=== PATIENT | female | born 1950 | race Caucasian/White ===

== ENCOUNTER 2024-12-31 09:30 | Outpatient (REF) | payer MEDICARE, SELFPAY ==
[2024-12-31 14:22] LABS: MANUAL DIFF FLAG NO
[2024-12-31 14:30] LABS: Hematocrit 38.0 % (37.0-47.0); Hemoglobin 12.9 g/dl (12.0-16.0); Imm Gran Abs Auto 0.01 X10*3/uL (0.00-0.03); Imm Gran Pct Auto 0.2 % (0.0-0.4); Lymphocytes Absolute Auto 1.8 X10*3/uL (1.2-4.9); Mean Corpuscular HGB Conc 33.9 g/dl (31.0-35.0); Mean Corpuscular Hemoglobin 28.9 pg (27.0-33.0); Mean Corpuscular Volume 85.2 fL (80.0-98.0); NRBC Abs Auto 0.000 X10*3/uL (0.0-0.012); NRBC Pct Auto 0.0 /100WBC (0.0-0.2); Platelet Count 267 X10*3/uL (160-400); Red Blood Count 4.46 X10*6/uL (4.20-5.50); White Blood Count 6.7 X10*3/uL (4.8-10.8)
[2024-12-31 15:05] LABS: Alanine Aminotransferase 15 U/L (0-31); Albumin Level 4.4 g/dL (3.5-5.0); Alkaline Phosphatase 71 U/L (39-117); Anion Gap 10 (12-20); Aspartate Amino Transferase 29 U/L (5-31); Blood Urea Nitrogen 15 mg/dL (9-16); Calcium 9.2 mg/dL (8.4-10.2); Carbon Dioxide 28 mmol/L (22-29); Chloride 109 mmol/L (96-108); Cholesterol 213 mg/dL (<200); Estimated Glomerular Filt Rate 55; HDL Cholesterol 59 mg/dL (>40); Potassium 3.8 mmol/L (3.3-5.1); Sodium 143 mmol/L (135-145); Total Protein 6.9 g/dL (6.5-8.0); Triglycerides 111 mg/dL (<150)
[2024-12-31 15:30] LABS: Hemoglobin A1C 138.8230 umol/L
== END 2024-12-31 09:31 | disposition home or self-care (01) ==
LOC: HO.WFDLDS 09:30
PROVIDERS: PCP Internal Medicine; Visit Provider Internal Medicine
DX: Z13.228 Encounter for screening for other metabolic disorders (principal); Z13.0 Encounter for screening for diseases of the blood and blood-forming organs and certain disorders involving the immune mechanism; E28.39 Other primary ovarian failure; E78.5 Hyperlipidemia, unspecified; R92.8 Other abnormal and inconclusive findings on diagnostic imaging of breast; G43.909 Migraine, unspecified, not intractable, without status migrainosus
CPT/HCPCS: 36415; 80053; 80061; 83036; 84443; 85025; 96127; 99202

== ENCOUNTER 2024-12-31 09:30 | Outpatient (AMB) | payer MEDICARE, SELFPAY ==
--- NOTE | 2024-12-31 09:35 | A.OFFPC_ITS ---
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: No Allergies No Known Allergies Allergy (Verified 12/31/24 09:39) Tobacco use date assessed: 12/31/24 Fall risk assessment: No Falls in past year Last assessed Fall Risk: 12/31/24 Dental Screening Dental Screen Date: 12/31/24 Did you have a dental visit in the last 12 months?: Yes Did you have a dental problem in the last 6 months where you did not have access to dental care?: No Was dental information given to patient?: Patient has dentist HPI HPI Comments History of Present Illness Details 74 year old female with a past medical h istory of migraines, hyperlipidemia, low vitamin D presenting to establish care HLD-on simvastatin Migraines-stable on imitrex Mammogram 08/2024-needs follow up imaging Td 2017 ROS CONSTITUTIONAL: Denies weight loss, fever and chills. HEENT: Denies changes in vision and hearing. RESPIRATORY: Denies SOB and cough. CV: Denies palpitations and CP GI: Denies abdominal pain, nausea, vomiting and diarrhea. : Denies dysuria and urinary frequency. MSK: Denies new myalgia and joint pain. SKIN: Denies rash and pruritus. NEUROLOGICAL: Denies headache PSYCHIATRIC: Denies recent changes in mood. PHYSICAL EXAM: GENERAL: Alert and oriented x 3. NAD EYES: EOMI. Anicteric. HENT: Moist mucous membranes. No scleral icterus. No cervical lymphadenopathy. LUNGS: Clear to auscultation bilaterally. CARDIOVASCULAR: Regular rate and rhythm. No murmur. No JVD. ABDOMEN: Soft, non-tender +bs EXTREMITIES: No edema. Non-tender. SKIN: No rashes or lesions. Warm. NEUROLOGIC: No focal neurological deficits. CN II-XII grossly intact PSYCHIATRIC: Cooperative. Appropriate mood and affect FOR[facility]LY [facility], [facility] Surgical History (Updated 12/31/24 @ 09:51 by Lucy Blanco CMA) History of colonoscopy H/O wisdom tooth extraction Hx of tonsillectomy Family History (Updated 12/31/24 @ 09:52 by Lucy Blanco CMA) Father Dementia HTN (hypertension) Cirrhosis Mother Uterine cancer Other Alcoholism FH: mental illness Substance abuse Social History (Updated 12/31/24 @ 09:53 by Lucy Blanco CMA) Housing: House Alcohol intake: current Patient Tobacco Use Status: Former Tobacco user Cigarette Packs Per Day: 0.25 Years Smoked: 2 e-Cigarette/Vaping Use: Never Used Second Hand Smoke Exposure: Yes service: No Current occupational status: retired Cognitive needs: No Hearing needs: Yes (hearing aid left ear) Vision needs: Yes (glasses) Questionnaire PHQ-9 Over the last 2 weeks, how often have you been bothered by any of the following problems? 1. Little interest or pleasure in doing things: not at all 2. Feeling down, depressed, or hopeless: not at all 3. Trouble falling or staying asleep, or sleeping too much: several days 4. Feeling tired or having little energy: several days 5. Poor appetite or overeating: not at all 6. Feeling bad about yourself - or that you are a failure or have let yourself or your family down: not at all 7. Trouble concentrating on things, such as reading the newspaper or watching television: not at all 8. Moving or speaking so slowly that other people could have noticed. Or the opposite - being so fidgety or restless that you have been moving around a lot more than usual: not at all 9. Thoughts that you would be better off or of hurting yourself in some way: not at all Total score: 2 Depression Screening Interpretation: Negative Depression Screening Done: Yes 48572 - PHQ-9 Billing: Yes Source: Developed by Drs. Terrance Almaraz, Kathy Bell, Bautista Durant and colleagues, with an educational kimber from [employer]. Thrive Questionnaire Date Thrive assessed: 12/31/24 I am a: Patient What is your living situation today?: I have a steady place to live Within the past 12 months, did the food you bought not last and you didn't have the money to get more?: Never true Within the past 12 months, did you worry whether your food would run out before you got money to buy more?: Never true Do you have trouble paying for medicines?: No Do you have trouble getting transportation to medical appointments?: No Do you have trouble paying your heating and electricity bill?: No Do you have trouble taking care of your child, family member or friend?: No Do you have trouble with day-to-day activities such as bathing, preparing meals, shopping, managing finances, etc.?: No Are you currently unemployed and looking for a job?: No Are you interested in more education?: No Please select the resources that you would like help with: None Currently or been in a relationship where the following occur: No concerns reported THRIVE Score: 0 AUDIT C Alcohol Use Questionnaire (AUDIT-C) 1. How often do you have a drink containing alcohol?: Monthly or less 2. How many drinks containing alcohol do you have on a typical day when you are drinking?: 1 or 2 3. How often do you have six or more drinks on one occasion?: Never Total Score: 1 YANA-7 AMB Questionnaire YANA-7 Date YANA - 7 assessed: 12/31/24 Feeling nervous, anxious, or on edge: 0 = Not at all Not being able to stop or control worryin = Not at all Worrying too much about different things: 0 = Not at all Trouble relaxin = Several days Being so restless that it is hard to sit still: 0 = Not at all Becoming easily annoyed or irritable: 1 = Several days Feeling afraid as if something awful might happen: 0 = Not at all Total YANA-7 score (0-4 normal; 5-9 mild; 10-14 moderate; 15-21 severe): 2 Source: Developed by Drs. Terrance Almaraz, Kathy Bell, Bautista Durant and colleagues, with an educational kimber from [employer]. YANA-7 Assessment Billing YANA-7 Assessment Tool: YANA-7 Assessment 42599 Physical exam (Primary Care) Vital Signs: Last Vital Signs Temp 98.2 F 12/31/24 09:42 Pulse 70 12/31/24 09:42 Resp 14 12/31/24 09:42 BP 128/80 12/31/24 09:42 Pulse Ox 97 12/31/24 09:42 Oxygen Delivery Method Room Air 12/31/24 09:42 BMI result Body Mass Index 29.1 Tobacco/Smoking Status: Tobacco use Status Tobacco use date assessed 12/31/24 12/31/24 09:46 Patient Tobacco Use Status Former Tobacco user 12/31/24 09:53 e-Cigarette/Vaping Use Never Used 12/31/24 09:53 PHQ-9: PHQ-9 Score PHQ-9: Total score 2 01/03/25 14:08 Depression Screening Interpretation: Negative Thrive Assessment: Date of Thrive Assessment Date Thrive assessed 12/31/24 12/31/24 09:46 Currently or been in a relationship where the following occur: No concerns reported Coding Level of Care Code New Pt Level 4 (09097) Complex EM visit Add On G2211 Diagnoses Hyperlipidemia, unspecified hyperlipidemia type E78.5 Hyperlipidemia type: unspecified Abnormal mammogram of left breast R92.8 Migraine without status migrainosus, not intractable, unspecified migraine type G43.909 Intractability: not intractable Migraine type: unspecified Status migrainosus presence: without status migrainosus Additional Codes YANA-7 Assessment Billing - YANA-7 Assessment Tool: YANA-7 Assessment 10210 ([id number]) PHQ-9 - 92089 - PHQ-9 Billing: Yes ([id number]) Assessment & Plan Assessment & Plan (1) Hyperlipidemia: Code(s): E78.5 - Hyperlipidemia, unspecified Category: Medical Qualifiers: Hyperlipidemia type: unspecified Qualified Code(s): E78.5 - Hyperlipidemia, unspecified (2) Abnormal mammogram of left breast: Code(s): R92.8 - Other abnormal and inconclusive findings on diagnostic imaging of breast Category: Medical (3) Migraine: Code(s): G43.909 - Migraine, unspecified, not intractable, without status migrainosus Category: Medical Qualifiers: Intractability: not intractable Migraine type: unspecified Status migrainosus presence: without status migrainosus Qualified Code(s): G43.909 - Migraine, unspecified, not intractable, without status migrainosus Plan 74 yo to establish care Past medical, surgical, social reviewed abnormal left breast imaging-f/up imaging ordered Labs ordered Cologuard ordered Orders: Orders MM diagnostic mammo unilat LT 12/31/24 R92.8 - Other abnormal and inconclusive findings on diagnostic imaging of breast US breast LT complete 12/31/24 R92.8 - Other abnormal and inconclusive findings on diagnostic imaging of breast Comprehensive Met. Panel 12/31/24 E28.39 - Other primary ovarian failure, E78.5 - Hyperlipidemia, unspecified, Z13.0 - Encounter for screening for diseases of the blood and blood-forming organs and certain disorders involving the immune mechanism, Z13.228 - Encounter for screening for other metabolic disorders Lipid Panel 12/31/24 E28.39 - Other primary ovarian failure, E78.5 - Hyp erlipidemia, unspecified, Z13.0 - Encounter for screening for diseases of the blood and blood-forming organs and certain disorders involving the immune mechanism, Z13.228 - Encounter for screening for other metabolic disorders TSH reflex Free T4 12/31/24 E28.39 - Other primary ovarian failure, E78.5 - Hyperlipidemia, unspecified, Z13.0 - Encounter for screening for diseases of the blood and blood-forming organs and certain disorders involving the immune mechanism, Z13.228 - Encounter for screening for other metabolic disorders Complete Blood Count Auto Diff 12/31/24 E28.39 - Other primary ovarian failure, E78.5 - Hyperlipidemia, unspecified, Z13.0 - Encounter for screening for diseases of the blood and blood-forming organs and certain disorders involving the immune mechanism, Z13.228 - Encounter for screening for other metabolic disorders Hemoglobin A1c 12/31/24 E28.39 - Other primary ovarian failure, E78.5 - Hyperlipidemia, unspecified, Z13.0 - Encounter for screening for diseases of the blood and blood-forming organs and certain disorders involving the immune mechanism, Z13.228 - Encounter for screening for other metabolic disorders XR DEXA axial skeleton 12/31/24 E28.39 - Other primary ovarian failure, M89.9 - Disorder of bone, unspecified, M94.9 - Disorder of cartilage, unspecified Complete Blood Count Auto Diff 6 Months E78.5 - Hyperlipidemia, unspecified, Z13.0 - Encounter for screening for diseases of the blood and blood-forming organs and certain disorders involving the immune mechanism, Z13.228 - Encounter for screening for other metabolic disorders Comprehensive Met. Panel 6 Months E78.5 - Hyperlipidemia, unspecified, Z13.0 - Encounter for screening for diseases of the blood and blood-forming organs and certain disorders involving the immune mechanism, Z13.228 - Encounter for screening for other metabolic disorders Lipid Panel 6 Months E78.5 - Hyperlipidemia, unspecified, Z13.0 - Encounter for screening for diseases of the blood and blood-forming organs and certain d isorders involving the immune mechanism, Z13.228 - Encounter for screening for other metabolic disorders Referrals Cologuard Test Z12.11 - Encounter for screening for malignant neoplasm of colon, Z12.12 - Encounter for screening for malignant neoplasm of rectum Medications: New simvastatin 20 mg PO BEDTIME 90 tabs 3RF sumatriptan succinate do not exceed 8 doses per 24 hrs 25 mg PO Q2-4H PRN 30 tabs 3RF migraine
[2024-12-31 09:42] VITALS: BP 128/80; PULSE 70; RESP 14; TEMP 36.8; O2SAT 97; BMI 29.1
--- OUTSIDE RECORDS SUMMARY | 2024-12-31 10:14 | XMS_ITS | Clinical Summary ---
Author Organization [facility] [address] [facility] [address] Address [address] [facility] [place] [address] Phone Care Team Providers Care Medical Technologist Chief Name Role Phone Fredis Otoole Primary Care Provider [phone] Surgical History Surgery Date Site/Laterality Comments TONSILLECTOMY PROCEDURE: HISTORICAL TONSILLECTOMY WISDOM TOOTH EXTRACTION PROCEDURE: HISTORICAL WISDOM TEETH EXTRACTION; COMMENT: x1 COLONOSCOPY 06/19/2012 PROCEDURE: MI COLONOSCOPY FLX DX W/COLLJ SPEC WHEN PFRMD; COMMENT: normal Medical History Medical History Date Comments Migraine DX:Migraine Family History Medical History Relation Name Comments No Known Problems Daughter Hypertension Father No Known Problems Maternal Grandfather No Known Problems Maternal Grandmother Cirrhosis Mother primary biliary Uterine cancer Mother PBC w/ ? canc er diagnsed in 60s No Known Problems Other No Known Problems Paternal Grandfather No Known Problems Paternal Grandmother No Known Problems Sister No Known Problems Son 1 No Known Problems Son 2 Other: Healthy Son 3 X2 Breast cancer Neg Hx Relation Name Status Comments Daughter Father Alive Maternal Grandfather Maternal Grandmother Mother Other Paternal Grandfather Paternal Grandmother Sister Son 1 Alive Son 2 Alive Son 3 Social History Tobacco Use Types Packs/Day Years Used Date Smoking Tobacco: Never Smokeless Tobacco: Never Alcohol Use Standard Drinks/Week Comments Yes 0 (1 standard drink = 0.6 oz pur e alcohol) Comments No Sex and Gender Information Value Date Recorded Sex Assigned at Not on file Legal Sex Female 1:10 AM EST Gender Identity Not on file Sexual Orientation Not on file Obstetrics History Para Term AB IAB SAB Ectopic Multiple Livin g Live Births 2 2 2 2 Date Outcome GA Total Labor Labor/2nd/3rd Weight Sex Type Anes PTL Екатерина A1 A5 Name Clin Term Term Last Filed Vital Signs Vital Sign Reading Time Taken Comments Blood Pressure 108/62 10/06/2023 9:49 AM EDT Pulse 82 10/06/2023 9:49 AM EDT Temperature - - Respiratory Rate - - Oxygen Saturation - - Inhaled Oxygen Concentration - - Weight 76.7 kg (169 lb) 10/06/2023 9:49 AM EDT Height 167.6 cm (5' 6 ) 10/06/2023 9:49 AM EDT Body Mass Index 27.28 10/06/2023 9:49 AM EDT Plan of Treatment Health Maintenance Due Date Last Done Comments Zoster Vaccines (1 of 2) 2002 Colorectal Cancer Screening: Colonoscopy 04/06/2022 Falls Risk Assessment 04/06/2022 Hepatitis C Screening 04/06/2022 Medicare Annual Wellness Visit 04/06/2022 Social Influencers of Health Screening 04/06/2022 Osteoporosis Screening (Bone Density Screening) 07/15/2023 07/14/2018 Depression Screening 04/28/2024 COVID-19 Vaccine ( season) 2024 03/11/2024, 02/14/2023, 03/12/2022, Additional history exists Influenza Vaccine (#1) 2024 , 01/29/2022, 02/01/2021, Additional history exists Breast Cancer Screening 09/21/2026 09/22/19, 09/16/2023, 09/16/2023, Additional history exists RSV Immunization Adult Patients (1 - 1-dose 75+ series) 11/20/2027 Cholesterol Screening (Lipid Panel) 10/05/2028 10/06/2023 DTaP,Tdap,and Td Vaccines (3 - Td or Tdap) 03/29/2032 03/29/2022, 12/18/2011 Pneumococcal Vaccine: 50+ Years Completed 04/09/2019, 02/27/2018 HIB Vaccines Aged Out No longer eligi ble based on patient's age to complete this topic HPV Vaccines Aged Out No longer eligi ble based on patient's age to complete this topic Hepatitis A Vaccines Aged Out No long er eligible based on patient's age to complete this topic Hepatitis B Vaccines Aged Out No long er eligible based on patient's age to complete this topic IPV Vaccines Aged Out No longer eligi ble based on patient's age to complete this topic MMR Vaccines Aged Out No longer eligi ble based on patient's age to complete this topic Meningococcal ACWY Vaccine Aged Out N o longer eligible based on patient's age to complete this topic Meningococcal B Vaccine Aged Out No l onger eligible based on patient's age to complete this topic RSV Immunization Patients Under 20 months Aged Out No longer eligible based on patient's age to complete this topic Varicella Vaccines Aged Out No longer eligible based on patient's age to complete this topic Procedures Procedure Name Priority Date/Time Associated Diagnosis Comments MG MAMMO DIGITAL SCREENING W RAKESH BILAT Routine 09/21/2024 3:45 PM EDT Encounter for screening mammogram for breast cancer DXA BONE DENSITY STUDY 1+ SITS AXIAL SKEL Routine 07/14/2018 9:29 AM EDT Menopausal and female climacteric states from Last 3 Months or Most Recently Relevant to Health Maintenance Results * (ABNORMAL) MG Mammo Digital Screening w Rakesh bilat (09/21/2024 3:45 PM EDT) Anatomical Region Laterality Modality Breast Bilateral Mammography 09/22/2024 9:34 AM EDT Impressions 09/22/2024 9:39 AM EDT Grouping of small focal asymmetries in the posterior medial left breast. Additional imaging is recommended. BI-RADS CATEGORY: 0 - INCOMPLETE - NEED ADDITIONAL IMAGING EVALUATION RECOMMENDATION: Additional left breast imaging recommended. Mammo Location: [facility], [address] [place] [address], [id number], . -------- FINAL REPORT -------- Dictated By: Ramandeep Sheth Dictated Date: 09/22/2024 09:34 ET Assigned Physician: Ramandeep Sheth Reviewed and Electronically Signed By: Ramandeep Sheth Signed Date: 09/22/2024 09:39 ET Workstation ID: [id number] Transcribed By: Self Edit Transcribed Date: 09/22/2024 09:34 ET Narrative 09/22/2024 9:39 AM EDT Bilateral screening mammogram. CLINICAL: 73 years old, Female, routine annual exam. COMPARISON: Prior mammograms, latest from 09/16/2023. TECHNIQUE: Bilateral MLO and CC views were obtained digitally with 2-D C views and 3-D mammogram (digital breast tomosynthesis). Computer-aided detection was utilized in evaluation of this exam (CAD). FINDINGS: There is a grouping of small circumscribed focal asymmetric is in the medial left breast posteriorly, better visualized on cc view. Additional assessment is recommended with spot compression views in CC and MLO projections, full field striped lateral view. Ultrasound would also be needed. We will contact the patient for the arrangements. There is no evidence of architectural distortion. No worrisome calcifications are evident. BREAST DENSITY: C - The breasts are heterogeneously dense which may obscure small masses. Procedure Note Ramandeep Sheth MD - 09/22/2024 Bilateral screening mammogram. CLINICAL: 73 years old, Female, routine annual exam. COMPARISON: Prior mammograms, latest from 09/16/2023. TECHNIQUE: Bilateral MLO and CC views were obtained digitally with 2-D Cviews and 3-D mammogram (digital breast tomosynthesis). Computer-aideddetection was utilized in evaluation of this exam (CAD). FINDINGS: There is a grouping of small circumscribed focal asymmetric is in themedial left breast posteriorly, better visualized on cc view. Additionalassessment is recommended with spot compression views in CC and MLOprojections, full field striped lateral view. Ultrasound would also beneeded. We will contact the patient for the arrangements. There is no evidence of architectural distortion. No worrisomecalcifications are evident. BREAST DENSITY: C - The breasts are heterogeneously dense which mayobscure small masses. IMPRESSION: Grouping of small focal asymmetries in the posterior medial left breast.Additional imaging is recommended. BI-RADS CATEGORY: 0 - INCOMPLETE - NEED ADDITIONAL IMAGING EVALUATION RECOMMENDATION: Additional left breast imaging recommended. Mammo Location: [facility], [address] [place] [address], [id number], . -------- FINAL REPORT -------- Dictated By: Ramandeep Sheth Dictated Date: 09/22/2024 09:34 ET Assigned Physician: Ramandeep Sheth Reviewed and Electronically Signed By: Ramandeep Sheth Signed Date: 09/22/2024 09:39 ET Workstation ID: [id number] Transcribed By: Self Edit Transcribed Date: 09/22/2024 09:34 ET us Fredis CAVAZOS IMG BI PROCEDURES Final Result * DXA BONE DENSITY STUDY 1+ SITS AXIAL SKEL (07/14/2018 9:29 AM EDT) Anatomical Region Laterality Modality Bone Densitometr y 02/27/2018 10:3 3 AM EDT Narrative 07/14/2018 3:26 PM EDT BONE DENSITY Lumbar Spine T-score is -0.7 (SD relative to 20-29 y/o adult) Z-score is +1.1 (SD relative to age matched peers) This is normal by criteria defined by the WHO. Left Hip T-score is -1.2 Z-score is +0.3 This is consistent with osteopenia by criteria defined by the WHO. Impression: Based on the World Health Organization criteria, Verenice Valderrama should be classified as having osteopenia. This patient has a 8.4% risk of major osteoporotic fracture and a 0.7% risk of hip fracture over the next 10 years. (World Health Organization Fracture Risk Assessment) The [facility] Department of Internal Medicine recommends using National Osteoporosis Foundation (NOF) guidelines in treatment decisions related to osteoporosis. NOF guidelines suggest considering treatment for postmenopausal women and men aged 50 or older presenting with the following: History of hip or vertebral fracture. T-score less than or equal to -2.5 (DXA) at the femoral neck, total hip, or spine, after appropriate evaluation to exclude secondary causes. Low bone mass (T-score between -1.0 and -2.5 at the femoral neck or spine) AND a 10-year probability of a hip fracture greater than or equal to 3% OR a 10-year probability of a major osteoporosis-related fracture greater than or equal to 20% based on the [place]-adapted WHO algorithm Please note that all treatment decisions require clinical judgment and consideration of individual patient factors, including patient preferences, co-morbidities, previous drug use, risk factors not captured in the FRAX model (e.g., frailty, falls, vitamin D deficiency, increased bone turnover, interval significant decline in bone density) and possible under- or over-estimation of fracture risk by FRAX. Procedure Note Lobo Erickson MD - 04/16/2022 BONE DENSITY Lumbar Spine T-score is -0.7 (SD relative to 20-29 y/o adult) Z-score is +1.1 (SD relative to age matched peers) This is normal by criteria defined by the WHO. Left Hip T-score is -1.2 Z-score is +0.3 This is consistent with osteopenia by criteria defined by the WHO. Impression: Based on the World Health Organization criteria, Verenice Valderrama should beclassified as having osteopenia. This patient has a 8.4% risk of majorosteoporotic fracture and a 0.7% risk of hip fracture over the next 10years. (World Health Organization Fracture Risk Assessment) The [facility] Department of Internal Medicine recommendsusing National Osteoporosis Foundation (NOF) guidelines in treatmentdecisions related to osteoporosis. NOF guidelines suggest consideringtreatment for postmenopausal women and men aged 50 or older presentingwith the following: History of hip or vertebral fracture. T-score less than or equal to -2.5 (DXA) at the femoral neck, total hip,or spine, after appropriate evaluation to exclude secondary causes. Low bone mass (T-score between -1.0 and -2.5 at the femoral neck or spine)AND a 10-year probability of a hip fracture greater than or equal to 3% ORa 10-year probability of a major osteoporosis-related fracture greaterthan or equal to 20% based on the [place]-adapted WHO algorithm Please note that all treatment decisions require clinical judgment andconsideration of individual patient factors, including patientpreferences, co-morbidities, previous drug use, risk factors not capturedin the FRAX model (e.g., frailty, falls, vitamin D deficiency, increasedbone turnover, interval significant decline in bone density) and possibleunder- or over-estimation of fracture risk by FRAX. Lizbet Diez MD [facility] [place] DXA PROCEDURES Final Result from Last 3 Months or Most Recently Relevant to Health Maintenance Insurance [employer] Care Teams Medical Technologist Chief Relationship Specialty Start Date End Date Fredis Otoole PA [facility], [address] [facility] [place] [id number] PCP - General Internal Medicine 09/21/24
== END 2024-12-31 10:26 | disposition home or self-care (01) ==
LOC: HO.HMCFM 09:31
PROVIDERS: PCP Internal Medicine; Visit Provider Internal Medicine
DX: E78.5 Hyperlipidemia, unspecified (principal); R92.8 Other abnormal and inconclusive findings on diagnostic imaging of breast; G43.909 Migraine, unspecified, not intractable, without status migrainosus